=== PATIENT | female | born 1980 | race Caucasian/White ===

== ENCOUNTER → 2017-01-17 | Outpatient (CLI) | payer OTHER ==
[~2017-01-17] MED LIST: CLINDAMYCIN HC300 MG PO; HYDROCODONE BIT1 T11 PO; NAPROSYN500 MG PO; PRENATAL1 TA7 PO
== END | disposition home or self-care (01) ==
LOC: MRI 09:00
DX: R51 Headache (principal)

== ENCOUNTER 2017-06-08 01:48 | Emergency (ER) | payer OTHER ==
[~2017-06-08] VITALS: Ht 170.1 cm; Wt 49.9 kg
[2017-06-08] MEDS ORDERED: ACULAR 3ML 3 ML5 ML OPH (03:21)
[2017-06-08] MEDS ORDERED: TOBRAMYCIN 5 ML5 M1 OPH (03:21)
== END 2017-06-08 04:06 | disposition home or self-care (01) ==
LOC: ED 01:48
DX: H10.213 Acute toxic conjunctivitis, bilateral (principal); Z88.1 Allergy status to other antibiotic agents

== ENCOUNTER 2017-09-19 20:37 | Emergency (ER) | payer OTHER ==
[~2017-09-19] VITALS: Ht 170.1 cm; Wt 54.4 kg
[~2017-09-19 20:37] MED LIST changes: +ACULAR 3ML 3 ML5 ML OPH; +TOBRAMYCIN 5 ML5 M1 OPH
[2017-09-19] MEDS ORDERED: ZOFRAN ODT4 MG SL (23:06)
== END 2017-09-19 23:41 | disposition home or self-care (01) ==
LOC: ED 20:37
DX: B34.9 Viral infection, unspecified (principal); F17.200 Nicotine dependence, unspecified, uncomplicated; Z88.1 Allergy status to other antibiotic agents

== ENCOUNTER 2018-03-20 19:00 | Emergency (ER) | payer OTHER ==
[~2018-03-20] VITALS: Ht 170.1 cm; Wt 55.8 kg
[~2018-03-20 19:00] MED LIST changes: +ZOFRAN ODT4 MG SL
[2018-03-20] MEDS ORDERED: NAPROSYN500 MG PO (20:25)
[2018-03-20] MEDS ORDERED: MEDROL DOSEPAK4 MG PO (20:25)
[2018-03-20] MEDS ORDERED: CYCLOBENZAPRINE10 MG PO (20:25)
== END 2018-03-20 20:34 | disposition home or self-care (01) ==
LOC: ED 19:00
DX: S16.1XXA Strain of muscle, fascia and tendon at neck level, initial encounter (principal); Z88.1 Allergy status to other antibiotic agents; X58.XXXA Exposure to other specified factors, initial encounter; Y93.89 Activity, other specified; Y92.89 Other specified places as the place of occurrence of the external cause; Y99.8 Other external cause status

== ENCOUNTER 2019-06-26 04:24 | Emergency (ER) | payer OTHER ==
[~2019-06-26] VITALS: Ht 182.8 cm; Wt 59.0 kg
--- NOTE | ~2019-06-26 | EKG ---
[place], [place] ELECTROCARDIOGRAM REPORT NAME: CRUZ SKY UNIT #: [id number] ROOM: DOCTOR: EPIPHANY DRAFT REPORT BIRTHDATE: [birth year] [facility] Test Date: 2019-06-26 Test Time: 06:23:17 Pat Name: CRUZ SKY Department: Room: Gender: F Office Mover: : 1980 Requested By: AISSATOU FLANAGAN Order Number: [id number] Reading MD: Pa Day MD Measurements Intervals [place] Rate: 68 P: 72 VA: 117 QRS: 75 QRSD: 103 T: 51 QT: 419 QTc: 446 Interpretive Statements Sinus rhythm Borderline short VA interval Compared to ECG 08/05/2018 20:57:18 Right ventricular hypertrophy no longer present Electronically Signed On 06-27-2019 15:56:28 PDT by Pa Day MD CM:EKGRPT:ELECTROCARDIOGRAM REPORT [id number] AISSATOU ELLISON DRAFT REPORT AISSATOU FLANAGAN DO
[~2019-06-26 04:24] MED LIST changes: +CYCLOBENZAPRINE10 MG PO; +MEDROL DOSEPAK4 MG PO
[2019-06-26 06:27] LABS: BASO % 0.6 % (0.0-1.0); EOS # 0.1 10*3/uL (0.0-0.4); HEMATOCRIT 37.5 % (37.0-47.0); HEMOGLOBIN 12.7 g/dl (12.0-16.0); LYMPH # 2.1 10*3/uL (1.3-4.4); LYMPH % 30.4 % (27.0-41.0); MEAN CELL VOLUME 91.9 fl (81.0-99.0); MEAN CORPUSCULAR HGB 31.1 pg (27.0-31.0); MEAN CORPUSCULAR HGB CONC 33.9 g/dl (33.0-37.0); MEAN PLATELET VOLUME 8.9 fl (9.6-12.3); MONO # 0.5 10*3/uL (0.1-1.0); MONO % 7.5 % (3.0-9.0); NEUT # 4.1 10*3/uL (2.3-7.9); NEUT % 59.2 % (47.0-73.0); PLATELET COUNT AUTOMATED 283 10*3/uL (130-400); RED BLOOD COUNT 4.08 10*6/uL (4.10-5.10); RED CELL DISTRI WIDTH 11.6 % (0-14.5)
[2019-06-26 06:37] LABS: ALBUMIN 3.8 gm/dl (3.1-4.5); ALKALINE PHOSPHATASE 56 U/L (45-117); BUN 11 mg/dl (7-24); CHLORIDE 113 mmol/L (98-107); CREATININE 0.72 mg/dL (0.55-1.02); POTASSIUM 3.6 mmol/L (3.5-5.1); SGOT/AST 7 IU/L (3-35); SGPT/ALT 17 U/L (12-78); SODIUM 142 mmol/L (136-145); TOTAL PROTEIN 6.3 gm/dL (6.4-8.2)
[2019-06-26] MEDS ORDERED: ATIVAN0.5 MG PO (07:52)
== END 2019-06-26 08:19 | disposition home or self-care (01) ==
LOC: ED 04:24
PROVIDERS: Emergency Medicine
DX: F41.9 Anxiety disorder, unspecified (principal); R07.89 Other chest pain; R20.0 Anesthesia of skin; R20.2 Paresthesia of skin; R42 Dizziness and giddiness; Z88.1 Allergy status to other antibiotic agents

== ENCOUNTER 2019-09-15 10:59 | Emergency (ER) | payer OTHER ==
[~2019-09-15] VITALS: Ht 170.1 cm; Wt 54.0 kg
[~2019-09-15 10:59] MED LIST changes: +ATIVAN0.5 MG PO
== END 2019-09-15 15:11 | disposition home or self-care (01) ==
LOC: ED 10:59
DX: F43.23 Adjustment disorder with mixed anxiety and depressed mood (principal); Z88.1 Allergy status to other antibiotic agents

== ENCOUNTER 2020-01-24 21:00 | Emergency (ER) | payer OTHER ==
[~2020-01-24] VITALS: Ht 170.1 cm; Wt 56.7 kg
[2020-01-24] MEDS ORDERED: VIBRAMYCIN100 MG PO (21:22)
== END 2020-01-24 21:25 | disposition home or self-care (01) ==
LOC: ED 21:00
DX: L08.89 Other specified local infections of the skin and subcutaneous tissue (principal); F17.200 Nicotine dependence, unspecified, uncomplicated; Z88.8 Allergy status to other drugs, medicaments and biological substances; Z79.899 Other long term (current) drug therapy

== ENCOUNTER 2020-02-11 16:11 | Emergency (ER) | payer OTHER ==
[~2020-02-11] VITALS: Ht 170.1 cm; Wt 56.7 kg
[~2020-02-11 16:11] MED LIST changes: +VIBRAMYCIN100 MG PO
== END 2020-02-11 18:05 | disposition home or self-care (01) ==
LOC: ED 16:11
DX: H60.01 Abscess of right external ear (principal); Z88.1 Allergy status to other antibiotic agents

== ENCOUNTER 2020-03-26 00:59 | Emergency (ER) | payer OTHER ==
[~2020-03-26] VITALS: Wt 56.7 kg
[2020-03-26] MEDS ORDERED: CLINDAMYCIN PHO40 GM V (01:24)
[2020-03-26] MEDS ORDERED: SEPTDS PO (01:24)
[2020-03-26 01:43] LABS: BILIRUBIN NEGATIVE (NEGATIVE); BLOOD NEGATIVE (NEGATIVE); CLARITY CLEAR (CLEAR); COLOR YELLOW (YELLOW); GLUCOSE NEGATIVE (NEGATIVE); KETONE NEGATIVE (NEGATIVE); SPECIFIC GRAVITY 1.025 (1.005-1.030)
[2020-03-26 01:44] LABS: LEUKO ESTERASE NEGATIVE (NEGATIVE); NITRITE NEGATIVE (NEGATIVE); RBC 0-2 rbc/hpf (0-2); UROBILINOGEN 0.2 E.U./dl (0.2-1.0)
== END 2020-03-26 03:09 | disposition home or self-care (01) ==
LOC: ED 00:59
PROVIDERS: Physician Assistant
DX: N39.0 Urinary tract infection, site not specified (principal); N76.0 Acute vaginitis; Z88.1 Allergy status to other antibiotic agents

== ENCOUNTER → 2020-07-08 | Outpatient (CLI) | payer OTHER ==
[~2020-07-08] MED LIST changes: +CLINDAMYCIN PHO40 GM V; +SEPTDS PO
== END | disposition home or self-care (01) ==
LOC: COVID19 00:40
PROVIDERS: ATTEND Family Medicine
DX: Z20.828 Contact with and (suspected) exposure to other viral communicable diseases (principal)

== ENCOUNTER 2021-03-27 17:57 | Emergency (ER) | payer OTHER ==
[~2021-03-27] VITALS: Wt 56.7 kg
[2021-03-27 19:25] LABS: BILIRUBIN Negative (Negative); BLOOD Negative (Negative); CLARITY Cloudy (Clear); COLOR Yellow (Yellow); GLUCOSE Negative (Negative); KETONE Negative (Negative); LEUKO ESTERASE 2+ (Negative); NITRITE Negative (Negative)
[2021-03-27 19:37] LABS: BACTERIA 2+; CALCIUM OXALATE CRYSTALS Trace; EPITHELIAL CELLS TNTC; RBC 0-2 rbc/hpf (0-2); WBC 31-40 wbc/hpf (0-5)
[2021-03-27] MEDS ORDERED: DIFLUCAN150 MG PO (19:50)
[2021-03-27] MEDS ORDERED: CEFUROXIME AXE500 MG PO (19:50)
[2021-03-27] MEDS ORDERED: CLINDAMYCIN PHO40 GM V (19:50)
== END 2021-03-27 19:14 | disposition home or self-care (01) ==
LOC: ED 17:57
PROVIDERS: Physician Assistant
DX: N76.0 Acute vaginitis (principal); N39.0 Urinary tract infection, site not specified; Z88.1 Allergy status to other antibiotic agents; Z79.2 Long term (current) use of antibiotics; Z79.899 Other long term (current) drug therapy

== ENCOUNTER 2022-08-12 15:20 | Emergency (ER) | payer OTHER ==
[~2022-08-12 15:20] MED LIST changes: +CEFUROXIME AXE500 MG PO; +DIFLUCAN150 MG PO
[2022-08-12 17:43] LABS: BILIRUBIN Negative (Negative); BLOOD Negative (Negative); CLARITY Turbid (Clear); COLOR Yellow (Yellow); GLUCOSE Negative (Negative); KETONE 2+ (Negative); LEUKO ESTERASE Negative (Negative); NITRITE Negative (Negative); UROBILINOGEN 0.2 E.U./dl (0.0-1.0)
[2022-08-12 18:06] LABS: BASO # 0.1 10*3/uL (0.0-0.1); BASO % 0.7 % (0.0-1.0); EOS # 0.3 10*3/uL (0.0-0.4); EOS % 2.5 % (1.0-4.0); HEMATOCRIT 36.9 % (37.0-47.0); LYMPH # 2.8 10*3/uL (1.3-4.4); LYMPH % 27.4 % (27.0-41.0); MEAN CELL VOLUME 92.7 fl (81.0-99.0); MEAN CORPUSCULAR HGB 31.9 pg (27.0-31.0); MEAN CORPUSCULAR HGB CONC 34.4 g/dl (33.0-37.0); MEAN PLATELET VOLUME 8.6 fl (9.6-12.3); MONO # 0.6 10*3/uL (0.1-1.0); MONO % 6.2 % (3.0-9.0); NEUT # 6.5 10*3/uL (2.3-7.9); NEUT % 62.8 % (47.0-73.0); PLATELET COUNT AUTOMATED 358 10*3/uL (130-400); RED BLOOD COUNT 3.98 10*6/uL (4.10-5.10); RED CELL DISTRI WIDTH 11.9 % (0-14.5); WHITE BLOOD COUNT 10.4 10*3/uL (4.8-10.8)
[2022-08-12 18:07] LABS: BACTERIA 2+; EPITHELIAL CELLS TNTC; MUCOUS 1+; RBC 0-2 rbc/hpf (0-2); WBC 0-2 wbc/hpf (0-5)
[2022-08-12 19:18] LABS: ALKALINE PHOSPHATASE 68 U/L (45-117); BUN 8 mg/dl (7-24); CHLORIDE 104 mmol/L (98-107); CREATININE 0.81 mg/dL (0.55-1.02); POTASSIUM 3.3 mmol/L (3.5-5.1); SGPT/ALT 41 U/L (12-78); SODIUM 138 mmol/L (136-145); TOTAL PROTEIN 6.6 gm/dL (6.4-8.2)
== END 2022-08-12 21:35 | disposition short-term general hospital (02) ==
LOC: ED 15:20
PROVIDERS: Nurse Practitioner Family
DX: S02.85XA Fracture of orbit, unspecified, initial encounter for closed fracture (principal); J98.2 Interstitial emphysema; Z88.1 Allergy status to other antibiotic agents; Y08.89XA Assault by other specified means, initial encounter; Y93.89 Activity, other specified; Y92.89 Other specified places as the place of occurrence of the external cause; Y99.8 Other external cause status

== ENCOUNTER 2022-10-06 20:19 | Emergency (ER) | payer OTHER ==
[~2022-10-06] VITALS: Ht 170.1 cm; Wt 60.3 kg
[2022-10-06 21:10] LABS: BASO # 0.1 10*3/uL (0.0-0.1); BASO % 0.8 % (0.0-1.0); EOS # 0.2 10*3/uL (0.0-0.4); EOS % 2.1 % (1.0-4.0); HEMATOCRIT 40.5 % (37.0-47.0); LYMPH # 2.9 10*3/uL (1.3-4.4); LYMPH % 29.4 % (27.0-41.0); MEAN CELL VOLUME 90.6 fl (81.0-99.0); MEAN CORPUSCULAR HGB 31.1 pg (27.0-31.0); MEAN CORPUSCULAR HGB CONC 34.3 g/dl (33.0-37.0); MEAN PLATELET VOLUME 8.2 fl (9.6-12.3); MONO # 0.6 10*3/uL (0.1-1.0); MONO % 5.7 % (3.0-9.0); NEUT # 6.1 10*3/uL (2.3-7.9); NEUT % 61.7 % (47.0-73.0); PLATELET COUNT AUTOMATED 387 10*3/uL (130-400); RED BLOOD COUNT 4.47 10*6/uL (4.10-5.10); RED CELL DISTRI WIDTH 12.2 % (0-14.5); WHITE BLOOD COUNT 9.9 10*3/uL (4.8-10.8)
[2022-10-06 21:50] LABS: ALKALINE PHOSPHATASE 73 U/L (46-116); BUN 15 mg/dl (9-23); CHLORIDE 108 mmol/L (98-107); POTASSIUM 3.8 mmol/L (3.4-5.1); SGPT/ALT 31 U/L (10-49); TOTAL PROTEIN 6.9 gm/dL (6.0-8.0)
== END 2022-10-06 22:47 | disposition home or self-care (01) ==
LOC: ED 20:19
PROVIDERS: Nurse Practitioner Family
DX: R07.9 Chest pain, unspecified (principal); R06.02 Shortness of breath; Z88.1 Allergy status to other antibiotic agents

== ENCOUNTER 2023-06-26 06:34 | Emergency (ER) | payer OTHER ==
[~2023-06-26] VITALS: Ht 170.1 cm; Wt 59.0 kg
[2023-06-26 06:52] LABS: BASO # 0.1 10*3/uL (0.0-0.1); BASO % 0.9 % (0.0-1.0); EOS # 0.3 10*3/uL (0.0-0.4); EOS % 4.1 % (1.0-4.0); HEMATOCRIT 38.9 % (37.0-47.0); LYMPH # 2.3 10*3/uL (1.3-4.4); LYMPH % 29.8 % (27.0-41.0); MEAN CELL VOLUME 92.8 fl (81.0-99.0); MEAN CORPUSCULAR HGB 32.9 pg (27.0-31.0); MEAN CORPUSCULAR HGB CONC 35.5 g/dl (33.0-37.0); MEAN PLATELET VOLUME 8.6 fl (9.6-12.3); MONO # 0.6 10*3/uL (0.1-1.0); MONO % 7.3 % (3.0-9.0); NEUT # 4.4 10*3/uL (2.3-7.9); NEUT % 57.5 % (47.0-73.0); PLATELET COUNT AUTOMATED 323 10*3/uL (130-400); RED BLOOD COUNT 4.19 10*6/uL (4.10-5.10); RED CELL DISTRI WIDTH 12.1 % (0-14.5); WHITE BLOOD COUNT 7.6 10*3/uL (4.8-10.8)
[2023-06-26 07:08] LABS: ACT PARTIAL THROMBO TIME 26.5 SECONDS (20.0-32.1)
[2023-06-26 07:31] LABS: ALKALINE PHOSPHATASE 72 U/L (46-116); BUN 13 mg/dl (9-23); CHLORIDE 110 mmol/L (98-107); POTASSIUM 3.7 mmol/L (3.4-5.1); SGPT/ALT 13 U/L (10-49); TOTAL PROTEIN 6.5 gm/dL (6.0-8.0)
[2023-06-26] MEDS ORDERED: MELOXICAM15 MG PO (07:40)
== END 2023-06-26 07:48 | disposition home or self-care (01) ==
LOC: ED 06:34
PROVIDERS: Emergency Medicine
DX: R07.89 Other chest pain (principal); R09.1 Pleurisy; Z88.1 Allergy status to other antibiotic agents; Z90.710 Acquired absence of both cervix and uterus; Z98.890 Other specified postprocedural states; F17.290 Nicotine dependence, other tobacco product, uncomplicated

== ENCOUNTER 2023-08-13 19:36 | Emergency (ER) | payer OTHER ==
[~2023-08-13] VITALS: Ht 170.1 cm; Wt 61.2 kg
[~2023-08-13 19:36] MED LIST changes: +MELOXICAM15 MG PO
[2023-08-13] MEDS ORDERED: VIBRAMYCIN100 MG PO (22:13)
== END 2023-08-13 22:29 | disposition home or self-care (01) ==
LOC: ED 19:36
DX: S10.96XA Insect bite of unspecified part of neck, initial encounter (principal); Z88.1 Allergy status to other antibiotic agents; Z98.890 Other specified postprocedural states; Z90.710 Acquired absence of both cervix and uterus; W57.XXXA Bitten or stung by nonvenomous insect and other nonvenomous arthropods, initial encounter; Y93.89 Activity, other specified; Y92.89 Other specified places as the place of occurrence of the external cause; Y99.8 Other external cause status

== ENCOUNTER 2023-10-20 14:56 | Emergency (ER) | payer OTHER ==
[~2023-10-20] VITALS: Ht 170.1 cm; Wt 62.6 kg
[2023-10-20] MEDS ORDERED: TAMIFLU 75MG CA75 MG PO (16:28)
== END 2023-10-20 16:46 | disposition home or self-care (01) ==
LOC: ED 14:56
DX: J10.1 Influenza due to other identified influenza virus with other respiratory manifestations (principal); Z20.822 Contact with and (suspected) exposure to COVID-19; Z88.1 Allergy status to other antibiotic agents; Z79.2 Long term (current) use of antibiotics

== ENCOUNTER → 2024-06-28 | Outpatient (CLI) | payer OTHER ==
[~2024-06-28] MED LIST changes: +TAMIFLU 75MG CA75 MG PO
[2024-06-28 13:47] LABS: BASO # 0.1 10*3/uL (0.0-0.1); BASO % 0.6 % (0.0-1.0); EOS # 0.1 10*3/uL (0.0-0.4); EOS % 1.6 % (1.0-4.0); HEMATOCRIT 39.5 % (37.0-47.0); LYMPH # 1.7 10*3/uL (1.3-4.4); LYMPH % 21.1 % (27.0-41.0); MEAN CELL VOLUME 93.6 fl (81.0-99.0); MEAN CORPUSCULAR HGB 31.5 pg (27.0-31.0); MEAN CORPUSCULAR HGB CONC 33.7 g/dl (33.0-37.0); MEAN PLATELET VOLUME 8.5 fl (9.6-12.3); MONO # 0.5 10*3/uL (0.1-1.0); MONO % 6.2 % (3.0-9.0); NEUT # 5.8 10*3/uL (2.3-7.9); PLATELET COUNT AUTOMATED 365 10*3/uL (130-400); RED BLOOD COUNT 4.22 10*6/uL (4.10-5.10); RED CELL DISTRI WIDTH 11.8 % (0-14.5); RETICULOCYTE % 1.37 % (0.50-2.50); WHITE BLOOD COUNT 8.2 10*3/uL (4.8-10.8)
[2024-06-28 14:09] LABS: BILIRUBIN Negative (Negative); BLOOD Negative (Negative); CLARITY Clear (Clear); COLOR Yellow (Yellow); GLUCOSE Negative (Negative); KETONE Negative (Negative); LEUKO ESTERASE Negative (Negative); NITRITE Negative (Negative); SPECIFIC GRAVITY <= 1.005 (1.001-1.030)
[2024-06-28 14:26] LABS: ALKALINE PHOSPHATASE 71 U/L (46-116); BUN 9 mg/dl (9-23); CHLORIDE 106 mmol/L (98-107); CHOLESTEROL 173 mg/dL (<200); GAMMA GLUTAMYL TRANSPEPTIDASE 22 U/L (0-73); LDL CHOLESTEROL 106 mg/dL (9-159); POTASSIUM 3.3 mmol/L (3.4-5.1); SGPT/ALT 13 U/L (5-49); THYROXINE (T4) TOTAL 6.9 ug/dl (4.5-10.9); TRIGLYCERIDES 66 mg/dl (<150)
[2024-06-28 14:28] LABS: VITAMIN D, 25-HYDROXY 33.1 ng/mL (30-100)
[2024-06-28 14:34] LABS: B-hCG (QUALITATIVE) NEGATIVE (NEGATIVE); BETA-HCG, QUANT < 3.0 mIU/mL (3-10)
[2024-06-28 14:43] LABS: BACTERIA TRACE; EPITHELIAL CELLS 16-20
[2024-06-30 22:05] LABS: HUMAN GROWTH HORMONE 0.1 ng/mL (0.0-10.0)
[2024-07-01 12:07] LABS: ANTI-DSDNA ANTIBODIES 2 IU/mL (0-9)
[2024-07-02 15:07] LABS: TESTOSTERONE FREE, (DIRECT) 0.6 pg/mL (0.0-4.2)
[2024-07-05 06:09] LABS: DEHYDROEPIANDROSTERONE 183 ng/dL (31-701)
== END | disposition home or self-care (01) ==
LOC: LAB 12:36
PROVIDERS: ATTEND Family Medicine
DX: R79.89 Other specified abnormal findings of blood chemistry (principal); R53.83 Other fatigue; E78.5 Hyperlipidemia, unspecified; E55.9 Vitamin D deficiency, unspecified

== ENCOUNTER 2025-03-20 14:05 | Emergency (ER) | payer OTHER ==
[~2025-03-20] VITALS: Wt 63.5 kg
[~2025-03-20 14:05] MED LIST changes: +CIPRO500 MG PO
[2025-03-20 14:19] LABS: BASO # 0.1 10*3/uL (0.0-0.1); BASO % 0.7 % (0.0-1.0); EOS # 0.2 10*3/uL (0.0-0.4); EOS % 3.2 % (1.0-4.0); MEAN CELL VOLUME 91.6 fl (81.0-99.0); MEAN CORPUSCULAR HGB 31.3 pg (27.0-31.0); MEAN PLATELET VOLUME 8.8 fl (9.6-12.3); MONO # 0.5 10*3/uL (0.1-1.0); MONO % 7.2 % (3.0-9.0); NEUT # 3.8 10*3/uL (2.3-7.9); NEUT % 51.0 % (47.0-73.0); NUCLEATED RED BLOOD CELL 0.0 % (0.0-0.0); NUCLEATED RED BLOOD CELL 0.0 10*3/uL (0.0-0.0); PLATELET COUNT AUTOMATED 312 10*3/uL (130-400); RED CELL DISTRI WIDTH 12.0 % (0-14.5)
[2025-03-20 14:38] LABS: ACT PARTIAL THROMBO TIME 25.9 SECONDS (20.0-32.1)
[2025-03-20 14:39] LABS: BUN 11 mg/dl (9-23)
[2025-03-20] MEDS ORDERED: SODIUM CHLORIDE 0.9% 1,000 ML IV ONE (15:30)
== END 2025-03-20 17:11 | disposition home or self-care (01) ==
LOC: ED 14:05
PROVIDERS: Internal Medicine
DX: E86.0 Dehydration (principal); F41.9 Anxiety disorder, unspecified; Z79.899 Other long term (current) drug therapy; Z88.1 Allergy status to other antibiotic agents; Z90.710 Acquired absence of both cervix and uterus